=== PATIENT | male | born 1975 | race Caucasian/White ===

== ENCOUNTER 2017-10-12 21:52 | Emergency (ER) | payer SELFPAY ==
[~2017-10-12] VITALS: Ht 180.3 cm; Wt 140.0 kg
[~2017-10-12 21:52] MED LIST: CIPRO500 MG PO; LORTAB 10 PO; LORTAB 5/3255 MG PO; LORTAB 7.5 PO; NAPROSYN500 MG PO; NO; ULTRAM50 M1 PO
[2017-10-12 23:00] LABS: URINE BILIRUBIN - DIPSTICK NEGATIVE (NEGATIVE); URINE BLOOD DIPSTICK NEGATIVE (NEGATIVE); URINE COLOR YELLOW; URINE GLUCOSE - DIPSTICK NEGATIVE (NEGATIVE); URINE KETONE 15 mg/dL (NEGATIVE); URINE LEUK ESTERASE NEGATIVE (NEGATIVE); URINE NITRITE - DIPSTICK NEGATIVE (Negative); URINE PROTEIN - DIPSTICK NEGATIVE (NEG-TRACE); URINE SPECIFIC GRAVITY >=1.030; URINE UROBILINOGEN - DIPSTICK 0.2 E.U./dL (0.2)
[2017-10-12 23:02] LABS: URINE CLARITY CLEAR
[2017-10-13] MEDS ORDERED: PERCOCET 5/325M1 TAB PO (00:42)
[2017-10-13] MEDS ORDERED: ORPHENADRINE100 MG PO (00:42)
[2017-10-13 00:45] VITALS: BP 129/80
== END 2017-10-13 00:56 | disposition home or self-care (01) | DRG 552 ==
LOC: ED 21:52
PROVIDERS: Emergency Medicine
DX: M47.816 Spondylosis without myelopathy or radiculopathy, lumbar region (principal); F17.210 Nicotine dependence, cigarettes, uncomplicated

== ENCOUNTER 2020-10-13 15:53 | Emergency (ER) | payer SELFPAY ==
[~2020-10-13] VITALS: Ht 180.3 cm; Wt 140.9 kg
[~2020-10-13 15:53] MED LIST changes: +ORPHENADRINE100 MG PO; +PERCOCET 5/325M1 TAB PO
[2020-10-13 17:46] VITALS: BP 132/78
== END 2020-10-13 18:48 | disposition left against medical advice (07) | DRG 951 ==
LOC: ED 15:53 → LWOBS 18:47
DX: Z53.21 Procedure and treatment not carried out due to patient leaving prior to being seen by health care provider (principal)

== ENCOUNTER 2020-11-06 08:41 | Emergency (ER) | payer SELFPAY ==
[~2020-11-06] VITALS: Ht 180.3 cm; Wt 141.8 kg
[2020-11-06] MEDS ORDERED: MOTRIN800 MG PO (10:59)
[2020-11-06 11:38] VITALS: BP 134/81
== END 2020-11-06 11:48 | disposition home or self-care (01) | DRG 563 ==
LOC: ED 08:41
DX: S83.92XA Sprain of unspecified site of left knee, initial encounter (principal); F17.210 Nicotine dependence, cigarettes, uncomplicated; X50.0XXA Overexertion from strenuous movement or load, initial encounter; Y93.89 Activity, other specified; Y92.009 Unspecified place in unspecified non-institutional (private) residence as the place of occurrence of the external cause
CPT/HCPCS: L1830

== ENCOUNTER 2021-02-04 05:26 | Emergency (ER) | payer SELFPAY ==
[~2021-02-04 05:26] MED LIST changes: +MOTRIN800 MG PO
[2021-02-04] MEDS ORDERED: CORTISPORIN OTI10 ML AD (06:17)
[2021-02-04] MEDS ORDERED: VALTREX1 GM PO (06:17)
[2021-02-04] MEDS ORDERED: PREDNISONE50 MG PO (06:17)
[2021-02-04 06:24] VITALS: BP 123/78
== END 2021-02-04 06:30 | disposition home or self-care (01) | DRG 866 ==
LOC: ED 05:26
DX: B02.8 Zoster with other complications (principal); F17.210 Nicotine dependence, cigarettes, uncomplicated

== ENCOUNTER 2021-11-10 07:37 | Emergency (ER) | payer SELFPAY ==
[~2021-11-10] VITALS: Ht 180.3 cm; Wt 150.0 kg
[~2021-11-10 07:37] MED LIST changes: +CORTISPORIN OTI10 ML AD; +PREDNISONE50 MG PO; +VALTREX1 GM PO
[2021-11-10 08:21] LABS: HEMATOCRIT 48.9 % (39.0-50.0); IMMATURE GRANULOCYTES 1.1 % (0.0-5.0); MEAN CELL VOLUME 89.2 fL CALC (80.0-100.0); MEAN CORPUSCULAR HGB 29.2 pG CALC (26.0-32.0); MEAN CORPUSCULAR HGB CONC 32.7 g/dL CAL (32.0-36.0); NEUT# 7.95 thou/uL (1.82-7.42); RED BLOOD COUNT 5.48 mill/uL (4.70-6.10); RED CELL DISTRI WIDTH 14.3 % (11.5-15.5)
[2021-11-10 08:35] LABS: ALBUMIN 3.9 g/dL (3.2-5.0); ALKALINE PHOSPHATASE 75 u/l (38-126); ANION GAP 14 (6-22 (CALC)); BILIRUBIN, TOTAL 0.6 mg/dL (0.0-1.4); BUN 17 mg/dL (9-20); BUN/CREATININE RATIO 16 (12-20 (CALC)); CARBON DIOXIDE 23 mmol/l (22-30); CHLORIDE 107 mmol/l (95-108); CREATININE 1.1 mg/dL (0.7-1.3); GFR > 60 ML/MIN (>=60 (CALC)); GFR FOR AFR.AMER. > 60 ML/MIN (>=60 (CALC)); LIPASE 62 u/l (23-300); POTASSIUM 4.1 mmol/l (3.5-5.1); SGOT/AST 24 u/l (17-59); SODIUM 140 mmol/l (137-146); TOTAL PROTEIN 7.2 g/dL (6.3-8.2)
[2021-11-10 09:26] LABS: URINE BILIRUBIN - DIPSTICK NEGATIVE (NEGATIVE); URINE BLOOD DIPSTICK MODERATE (NEGATIVE); URINE COLOR YELLOW; URINE GLUCOSE - DIPSTICK NEGATIVE (NEGATIVE); URINE KETONE NEGATIVE (NEGATIVE); URINE LEUK ESTERASE NEGATIVE (NEGATIVE); URINE PROTEIN - DIPSTICK NEGATIVE (NEG-TRACE); URINE SPECIFIC GRAVITY 1.025; URINE UROBILINOGEN - DIPSTICK 0.2 E.U./dL (0.2)
[2021-11-10 09:28] LABS: URINE NITRITE - DIPSTICK NEGATIVE (Negative)
[2021-11-10] MEDS ORDERED: CIPROFLOXACN500 MG PO (09:37)
[2021-11-10] MEDS ORDERED: HYDROCO/APAP1 TA9 PO (09:37)
[2021-11-10] MEDS ORDERED: ZOFRAN4 MG/TAB PO (09:37)
[2021-11-10] MEDS ORDERED: TAMSULOSIN0.4 MG PO (09:37)
[2021-11-10 09:41] VITALS: BP 132/86
== END 2021-11-10 09:48 | disposition home or self-care (01) | DRG 694 ==
LOC: ED 07:37
DX: N20.0 Calculus of kidney (principal); F17.200 Nicotine dependence, unspecified, uncomplicated; Z87.442 Personal history of urinary calculi